=== PATIENT | male | born 1960 | race Caucasian/White ===

== ENCOUNTER 2020-06-28 10:11 | Inpatient (IN) | payer OTHER ==
[~2020-06-28] VITALS: Ht 177.8 cm; Wt 63.5 kg
[~2020-06-28 10:11] MED LIST: FLAGYL500 MG PO; LEVOFLOXACIN750 MG PO; ZOFRAN4 MG PO
[2020-06-28 12:04] LABS: HEMOGLOBIN 10.7 gm/dl (14.0-17.5); RED BLOOD COUNT 4.61 M/UL (4.20-5.50); WHITE BLOOD COUNT 13.6 K/UL (4.5-11.0)
[2020-06-28 12:33] LABS: BUN/CREATININE RATIO 14 (0-10)
[2020-06-28] MEDS ORDERED: OXYCONTIN10 MG PO (18:18)
[2020-06-29 04:34] LABS: HEMOGLOBIN 8.8 gm/dl (14.0-17.5)
[2020-06-29 04:38] LABS: RED BLOOD COUNT 3.79 M/UL (4.20-5.50)
[2020-06-29 04:51] LABS: BUN/CREATININE RATIO 13 (0-10)
--- NOTE | 2020-06-29 18:37 | NUR ---
PT WENT INTO [facility]. MD HAS BEEN NOTIFIED. AN EKG HAS BEEN ORDERED.
--- NOTE | 2020-06-30 10:20 | NUR ---
PATIENT HAS REFUSED TO WEAR HEART MONITOR.
[2020-06-30 11:49] LABS: HEMOGLOBIN 8.3 gm/dl (14.0-17.5); RED BLOOD COUNT 3.57 M/UL (4.20-5.50)
[2020-06-30 12:08] LABS: BUN/CREATININE RATIO 7 (0-10)
[2020-07-01 02:36] LABS: HEMOGLOBIN 8.4 gm/dl (14.0-17.5); RED BLOOD COUNT 3.65 M/UL (4.20-5.50); WHITE BLOOD COUNT 4.1 K/UL (4.5-11.0)
[2020-07-01 03:05] LABS: BUN/CREATININE RATIO 2 (0-10)
[2020-07-02 06:52] LABS: HEMOGLOBIN 8.1 gm/dl (14.0-17.5); RED BLOOD COUNT 3.56 M/UL (4.20-5.50)
[2020-07-02 06:53] LABS: WHITE BLOOD COUNT 2.5 K/UL (4.5-11.0)
[2020-07-03] MEDS ORDERED: THERAGRAN M TAB1 EA PO (10:46)
[2020-07-03] MEDS ORDERED: CEFUROXIME500 MG PO (10:46)
== END 2020-07-03 17:47 | disposition home health service (06) | DRG 690 ==
LOC: ER1 10:11 → MED SURG 4 18:00 → ZEROF 18:00 → MED SURG 4 06-29 07:52
PROVIDERS: Emergency Medicine; Internal Medicine Infectious Disease; Physician Assistant; ADMIT Internal Medicine
DX: N30.00 Acute cystitis without hematuria (principal); C20 Malignant neoplasm of rectum; E44.0 Moderate protein-calorie malnutrition; R62.7 Adult failure to thrive; Z20.822 Contact with and (suspected) exposure to COVID-19; E87.6 Hypokalemia; D72.829 Elevated white blood cell count, unspecified; D64.9 Anemia, unspecified; B96.20 Unspecified Escherichia coli [E. coli] as the cause of diseases classified elsewhere; Z80.1 Family history of malignant neoplasm of trachea, bronchus and lung; Z68.20 Body mass index [BMI] 20.0-20.9, adult; Z80.3 Family history of malignant neoplasm of breast; Z80.8 Family history of malignant neoplasm of other organs or systems
CPT/HCPCS: 36415; 71045; 80048; 80053; 81001; 82550; 82553; 83605; 83690; 83735; 83874; 84132; 84484; 85025; 87040; 87077; 87086; 87186; 90471; 93005; 96365; 96375; 96376; 97116-GP-CQ; 97163; 99285; J0696; J1650; J2270; J2405; J3475; J3480; J7030; J7120; Q9967; U0002

== ENCOUNTER → 2020-12-05 | Outpatient (CLI) | payer OTHER ==
[~2020-12-05] MED LIST changes: +CEFUROXIME500 MG PO; +OXYCONTIN10 MG PO; +THERAGRAN M TAB1 EA PO
== END ==
LOC: RAD 16:19
DX: M25.511 Pain in right shoulder (principal); M19.011 Primary osteoarthritis, right shoulder
CPT/HCPCS: 73030

== ENCOUNTER → 2020-12-20 | Outpatient (CLI) | payer OTHER | LOC: CT 12-11 10:30 | DX: C20 Malignant neoplasm of rectum (principal) | CPT/HCPCS: 36415; 71260; 82565; Q9967 ==